=== PATIENT | male | born 1990 | race Caucasian/White ===

== ENCOUNTER 2017-09-04 14:07 | Inpatient (IN) | payer OTHER ==
[~2017-09-04] VITALS: Ht 177.8 cm; Wt 83.5 kg
--- NOTE | 2017-09-04 14:35 | PD ---
HPI Chief Complaint: Harris act Time Seen by Provider: 14:20 Travel History International Travel<30 days: No Contact w/Intl Traveler<30days: No Traveled to known affect area: No History of Present Illness HPI 26-year-old male who reports a history of schizophrenia, who presents under Harris act initiated by law enforcement. According to his paperwork, "Vin walked into the [facility] station and was saying he sees angels and demons with red eyes, seeing colors that are not there, people that are not there. Vin stated that she sees demineralized when he looks at the cell phone and he denies when he watches TV. Vin continue to talk about seeing Demon eyesand different colored eyes and was not making much sense. Vin stated that he is addicted to pills but cannot remember when the last time he used was. vin also stated that he hears voices with red eyes. Vin kept repeating that he needed Charlie." The onset of the patient's symptoms are unknown. He reports that he does not know. He does not voice any suicidal homicidal ideation. When asked about illicit drug use he says that he does not know. He does report that he has a history of schizophrenia and he has been at [facility] in the past. He reports that at one point or another he was prescribed medications and start [facility] but he does not know what they were or when he quit using them. He has no other complaints. 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 PFSH Social History Tobacco Use: Yes Allergies-Medications (Allergen,Severity, Reaction): Coded Allergies: No Known Allergies (Unverified , 09/04/17) Review of Systems ROS Limitations: Psychotic Except as stated in HPI: all other systems reviewed are Neg Physical Exam Exam Limitations: Psychotic Narrative GENERAL: This is a well-developed well-nourished male who is in no acute distress. SKIN: Warm and dry. HEAD: Atraumatic. Normocephalic. EYES: Pupils equal and round. No scleral icterus. No injection or drainage. ENT: No nasal bleeding or discharge. Mucous membranes pink and moist. NECK: Trachea midline. No JVD. CARDIOVASCULAR: Regular rate and rhythm. No murmur appreciated. RESPIRATORY: No accessory muscle use. Clear to auscultation. Breath sounds equal bilaterally. GASTROINTESTINAL: Abdomen soft, non-tender, nondistended. Hepatic and splenic margins not palpable. MUSCULOSKELETAL: No obvious deformities. No clubbing. No cyanosis. No edema. NEUROLOGICAL: Awake and alert. No obvious cranial nerve deficits. Motor grossly within normal limits. Normal speech. PSYCHIATRIC: Rapid disorganized speech, responding to internal stimuli, insight and judgment are poor. Data Data Last Documented VS Vital Signs Date Time Temp Pulse Resp B/P (MAP) Pulse Ox O2 Delivery O2 Flow Rate FiO2 09/04/17 14:53 98.4 104 18 158/97 (117) 97 Orders Orders Complete Blood Count With Diff (09/04/17 14:29) Comprehensive Metabolic Panel (09/04/17 14:29) Thyroid Stimulating Hormone (09/04/17 14:29) Psych Screen (09/04/17 14:29) Drug Screen, Random Urine (09/04/17 14:29) Alcohol (Ethanol) (09/04/17 14:29) Ct Brain W/O Iv Contrast(Rout) (09/04/17 ) Diet Regular Basic (09/04/17 Dinner) Labs Laboratory Tests Test 09/04/17 15:08 White Blood Count 7.6 TH/MM3 Red Blood Count 4.72 MIL/MM3 Hemoglobin 15.3 GM/DL Hematocrit 44.4 % Mean Corpuscular Volume 93.9 FL Mean Corpuscular Hemoglobin 32.3 PG Mean Corpuscular Hemoglobin Concent 34.4 % Red Cell Distribution Width 14.4 % Platelet Count 232 TH/MM3 Mean Platelet Volume 9.2 FL Neutrophils (%) (Auto) 72.8 % Lymphocytes (%) (Auto) 19.1 % Monocytes (%) (Auto) 6.8 % Eosinophils (%) (Auto) 0.7 % Basophils (%) (Auto) 0.6 % Neutrophils # (Auto) 5.6 TH/MM3 Lymphocytes # (Auto) 1.5 TH/MM3 Monocytes # (Auto) 0.5 TH/MM3 Eosinophils # (Auto) 0.1 TH/MM3 Basophils # (Auto) 0.0 TH/MM3 CBC Comment DIFF FINAL Differential Comment Blood Urea Nitrogen 9 MG/DL Creatinine 0.86 MG/DL Random Glucose 79 MG/DL Total Protein 7.5 GM/DL Albumin 4.0 GM/DL Calcium Level 8.6 MG/DL Alkaline Phosphatase 84 U/L Aspartate Amino Transf (AST/SGOT) 26 U/L Alanine Aminotransferase (ALT/SGPT) 33 U/L Total Bilirubin 0.7 MG/DL Sodium Level 139 MEQ/L Potassium Level 3.7 MEQ/L Chloride Level 105 MEQ/L Carbon Dioxide Level 22.7 MEQ/L Anion Gap 11 MEQ/L Estimat Glomerular Filtration Rate 106 ML/MIN Thyroid Stimulating Hormone 3rd Gen 0.365 uIU/ML Ethyl Alcohol Level LESS THAN 3 MG/DL MDM Medical Decision Making Medical Screen Exam Complete: Yes Emergency Medical Condition: Yes Medical Record Reviewed: Yes Differential Diagnosis Schizophrenia, acute psychosis, encephalitis, meningitis, substance-induced mood disorder, schizoaffective disorder Narrative Course 26-year-old male who reports a history of schizophrenia presents under Harris act for psychiatric evaluation. Mental health screening discussed with the patient. Psychiatric screen ordered. Lab work is unremarkable. CT the brain is normal. The patient is medically cleared for psychiatric disposition. Diagnosis Primary Impression: Medical clearance for psychiatric admission Wilfredo Segovia Sep 04, 2017 14:35
[2017-09-04 14:53] VITALS: BP 158/97; PULSE 104; RESP 18; TEMP 98.4; O2SAT 97
[2017-09-04 15:33] LABS: AUTOMATED NEUTROPHIL # 5.6 TH/MM3 (1.8-7.7); BASOPHIL % 0.6 % (0.0-2.0); EOSINOPHIL # 0.1 TH/MM3 (0-0.4); EOSINOPHIL % 0.7 % (0.0-4.0); HEMATOCRIT 44.4 % (39.0-51.0); HEMOGLOBIN 15.3 GM/DL (13.0-17.0); LYMPH % 19.1 % (9.0-44.0); LYMPHOCYTE # 1.5 TH/MM3 (1.0-4.8); MEAN CELL VOLUME 93.9 FL (80.0-100.0); MEAN CORPUSCULAR HEMOGLOBIN 32.3 PG (27.0-34.0); MEAN CORPUSCULAR HGB CONC 34.4 % (32.0-36.0); MEAN PLATELET VOLUME 9.2 FL (7.0-11.0); MONO % 6.8 % (0.0-8.0); MONOCYTE # 0.5 TH/MM3 (0-0.9); NEUT % 72.8 % (16.0-70.0); PLATELET COUNT 232 TH/MM3 (150-450); RED BLOOD COUNT 4.72 MIL/MM3 (4.50-5.90); RED CELL DISTRIBUTION WIDTH 14.4 % (11.6-17.2); WHITE BLOOD COUNT 7.6 TH/MM3 (4.0-11.0)
[2017-09-04 16:19] LABS: ALKALINE PHOSPHATASE 84 U/L (45-117); TOTAL BILIRUBIN ADULT 0.7 MG/DL (0.2-1.0); TOTAL PROTEIN 7.5 GM/DL (6.4-8.2)
[2017-09-04 16:22] LABS: ALT (GPT) 33 U/L (12-78); AST (GOT) 26 U/L (15-37); BICARBONATE 22.7 MEQ/L (21.0-32.0); BLOOD UREA NITROGEN 9 MG/DL (7-18); CALCIUM 8.6 MG/DL (8.5-10.1); CHLORIDE 105 MEQ/L (98-107); CREATININE 0.86 MG/DL (0.60-1.30); GLOMERULAR FILTRATION RATE 106 ML/MIN (>89); GLUCOSE,RANDOM 79 MG/DL (74-106); SODIUM (NA) 139 MEQ/L (136-145)
--- NOTE | 2017-09-04 18:05 | RADRPT ---
EXAM DATE/TIME: 09/04/2017 17:33 [facility] COMPARISON: No previous studies available for comparison. INDICATIONS : Altered mental status. RADIATION DOSE: 56.77 CTDIvol (mGy) MEDICAL HISTORY : None SURGICAL HISTORY : None. ENCOUNTER: Initial ACUITY: 1 day PAIN SCALE: 0/10 LOCATION: cranial TECHNIQUE: Multiple contiguous axial images were obtained of the head. Using automated exposure control and adj ustment of the mA and/or kV according to patient size, radiation dose was kept as low as reasonably a chievable to obtain optimal diagnostic quality images. DICOM format image data is available electro nically for review and comparison. FINDINGS: CEREBRUM: The ventricles are normal for age. No evidence of midline shift, mass lesion, hemorrhage or acute in farction. No extra-axial fluid collections are seen. POSTERIOR FOSSA: The cerebellum and brainstem are intact. The 4th ventricle is midline. The cerebellopontine angle i s unremarkable. EXTRACRANIAL: The visualized portion of the orbits is intact. SKULL: The calvaria is intact. No evidence of skull fracture. CONCLUSION: No acute disease. Fredy Estrada MD on September 04, 2017 at 18:02 Board Certified Radiologist. This report was verified electronically.
[2017-09-04 18:21] VITALS: BP 120/66; PULSE 68; RESP 18; O2SAT 98
[2017-09-05 05:36] VITALS: BP 127/72; PULSE 53; RESP 20; TEMP 98.2; O2SAT 97
[2017-09-05] MEDS ORDERED: ACETAMINOPHEN 325 MG TAB PO PRN (14:30)
[2017-09-05] MEDS ORDERED: NICOTINE 21 MG/24 HR PATCH T-DERMAL PRN (14:30)
[2017-09-05] MEDS ORDERED: ALUMINUM/MAGNESIUM/SIMETH 30 ML CUP PO PRN (14:30)
[2017-09-05] MEDS ORDERED: MAGNESIUM HYDROXIDE SUSP 30 ML CUP PO PRN (14:30)
[2017-09-05 15:00] VITALS: BP 139/81; PULSE 72; RESP 18; TEMP 98.1; O2SAT 97
[2017-09-06 06:06] VITALS: BP 122/65; PULSE 62; RESP 18; TEMP 98.7; O2SAT 95
[2017-09-06 09:07] LABS: CHOLESTEROL 112 MG/DL (120-200); TRIGLYCERIDES 105 MG/DL (42-150)
[2017-09-06 09:08] LABS: CHOLESTEROL/ HDL RATIO 2.87 RATIO; LDL CHOLESTEROL 52 MG/DL (0-99)
[2017-09-06] MEDS ORDERED: hydrOXYzine HCL 50 MG TAB PO PRN (14:00)
[2017-09-06] MEDS: OLANZapine 5 MG TAB PO SCH ×2 (14:31→21:42)
[2017-09-06 15:14] LABS: HEMOGLOBIN A1C 4.8 % (4.3-6.0)
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
[2017-09-06 18:10] VITALS: BP 129/59; PULSE 57; RESP 18; TEMP 98.4; O2SAT 96
[2017-09-06] MEDS ORDERED: diphenhydrAMINE HCL 50 MG CAP PO PRN (21:00)
[2017-09-07 06:12] VITALS: BP 129/67; PULSE 66; RESP 18; TEMP 98.9; O2SAT 95
[2017-09-07] MEDS: OLANZapine 5 MG TAB PO SCH (08:26)
--- NOTE | 2017-09-07 11:56 | HHI.PYPN ---
Subjective Remarks Patient seen for follow, chart reviewed. Discussion nursing staff reported the patient continued to endorse auditory hallucinations last night but feels medications are helping. Patient was found ambulating on unit noted B, cooperative. Patient states that he feels medications have been helping and that it has been easier for him to be able to focus which words he chooses. He states "every what is different before but medications are helping". Patient denies any adverse drug reactions. Patient continues to make occasional nonsensical statements, such as "I was listening to country music and everyone listening as well". Patient noted with less pressured speech today. Review of Systems Except as stated in HPI: all other systems reviewed are Neg Mental Status Examination Appearance: Appropriate Consciousness: Alert Orientation: Person, Place, Date/Time Speech: Pressured (Lessening) Language: Adequate Fund of Knowledge: Inadequate Attention and Concentration: Adequate Memory: Unremarkable Mood: Anxious (Less so today) Affect: Labile (Less so today) Thought Process & Associations: Disorganized, Tangential Thought Content: Hallucinations, Delusional Hallucination Type: Auditory, Visual, Other Delusion Type: Bizarre, Paranoid, Other (Religiously preoccupied) Suicidal Ideation: No Suicidal Plan: No Suicidal Intention: No Homicidal Ideation: No Homicidal Plan: No Homicidal Intention: No Insight: Poor Judgment: Poor Results Vitals/IOs Vital Signs Date Time Temp Pulse Resp B/P (MAP) Pulse Ox O2 Delivery O2 Flow Rate FiO2 09/07/17 06:12 98.9 66 18 129/67 (87) 95 09/05/17 05:36 Room Air Assessment & Plan Problem List: (1) Unspecified psychosis ICD Codes: F29 - Unspecified psychosis not due to a substance or known physiological condition Assessment & Plan Patient this time continues to have some disorganization, continues with perceptual services, noted to be slightly more organized thought process today along with less pressured speech. We will increase olanzapine to 5 mg a.m./ 10 mg at bedtime. Continue monitor mood and behavior. Discharge planning in progress. Justification for Cont. Inpt. At risk of further decompensation a lower level of care. Oc Pichardo MD Sep 07, 2017 11:56
--- NOTE | 2017-09-07 12:41 | PD.PSY.CON ---
Provisional Diagnosis Admission Date Sep 05, 2017 at 14:19 Waldo I. Unspecified psychosis History of Present Illness Service Psychiatry Consult Requested By Psychiatry Reason for Consult Second opinion Primary Care Physician Unknown HPI Patient is a 26-year-old man, single, has 1 child currently not living with him, unemployed, homeless but recently domiciled at [facility] the [facility],, with a past psychiatric history of schizophrenia versus bipolar disorder as per patient, with 3-4 previous psychiatric admissions last time being at [facility], with reported multiple suicide attempts, with substance use history of alcohol and OxyContin use in early remission who was brought to the ED under [employer] act as patient had walked into a [employer] station stating hearing and seeing angels and demons which patient was admitted to the inpatient psychiatry for further evaluation and management. Patient was noted to be somewhat labile during interview, stating that he had the Bible speaking to him and had been seeing the devil for the past couple of days. Patient states that while living in the sober living facility other members would try to ambulate his actions regarding praying or singing or listening to country music. Patient states that the Bible "started turning on me" stating that he was experiencing auditory hallucinations as well. Patient states he had been eating recently stating that he is "strong". Patient denies any SI or HI. Patient noted to be religiously preoccupied. The patient is a 26 years old man, he is single, unemployed, domiciled in a residential facility [facility], with psychiatric history of schizophrenia and bipolar disorder, previous psychiatric hospitalizations, multiple suicidal attempts, was brought to the hospital on the [employer] at with commanding type auditory hallucinations. Patient was consulted to me for second opinion. Patient reports that he is better now, he is quite disorganized, stating that he is hearing voices from the [place] talking to him. He denies suicidal and was ideation, he denies visual hallucinations. his oriented 3. Past Family Social History Coded Allergies: No Known Allergies (Unverified , 09/04/17) No Active Prescriptions or Reported Meds Current Medications Medications (Trade) Dose Ordered Sig/Ana Route Start Time Stop Time Status Last Admin (Tylenol) 650 mg Q4H PRN PO 09/05/17 14:30 (Milk Of Magnesia Liq) 30 ml DAILY PRN PO 09/05/17 14:30 (Mag-Al Plus Susp Liq) 30 ml Q6H PRN PO 09/05/17 14:30 (Habitrol 21 Mg Patch.24 Hr) 1 patch DAILY PRN T-DERMAL 09/05/17 14:30 (Benadryl) 50 mg HS PRN PO 09/06/17 21:00 (Atarax) 50 mg Q6H PRN PO 09/06/17 14:00 (ZyPREXA) 5 mg DAILY PO 09/08/17 09:00 (ZyPREXA) 10 mg HS PO 09/07/17 21:00 Miscellaneous Information 1 HS T-DERMAL 09/07/17 21:00 Patient's Strengths (min. 2) Verbal and communicative Physical Exam Vital Signs Vital Signs Date Time Temp Pulse Resp B/P (MAP) Pulse Ox O2 Delivery O2 Flow Rate FiO2 09/07/17 06:12 98.9 66 18 129/67 (87) 95 09/05/17 05:36 Room Air Mental Status Examination Appearance: Appropriate Consciousness: Alert Orientation: Person, Place, Date/Time Speech: Pressured (Lessening) Language: Adequate Fund of Knowledge: Inadequate Attention and Concentration: Adequate Memory: Unremarkable Mood: Anxious (Less so today) Affect: Labile (Less so today) Thought Process & Associations: Disorganized, Tangential Thought Content: Hallucinations, Delusional Hallucination Type: Auditory, Visual, Other Delusion Type: Bizarre, Paranoid, Other (Religiously preoccupied) Suicidal Ideation: No Suicidal Plan: No Suicidal Intention: No Homicidal Ideation: No Homicidal Plan: No Homicidal Intention: No Insight: Poor Judgment: Poor Assessment & Plan Problem List: (1) Unspecified psychosis ICD Codes: F29 - Unspecified psychosis not due to a substance or known physiological condition Assessment & Plan: I have seen and examined this patient, reviewed documentation, I agree and concur with Dr. Pichardo assessment and plan. Assessment & Plan Estimated LOS: Cal Higgins MD Sep 07, 2017 12:41
[2017-09-07 18:19] VITALS: BP 129/63; PULSE 53; RESP 17; TEMP 98.2; O2SAT 99
[2017-09-07] MEDS: REMOVE OLD NICODERM (NICOTINE) PATCH T-DERMAL SCH (21:00)
[2017-09-07] MEDS: OLANZapine 10 MG TAB PO SCH (21:59)
[2017-09-08 06:29] VITALS: BP 121/70; PULSE 59; RESP 17; TEMP 98.4; O2SAT 96
[2017-09-08] MEDS: OLANZapine 5 MG TAB PO SCH (09:18)
--- NOTE | 2017-09-08 14:10 | HHI.PYPN ---
Subjective Remarks Patient was seen and case discussed with nursing. Patient is vague and superficial during the interview. Both questions are answered as "a little bit , here and there." No longer seeing demons or red eyes. He is tolerating his medications well. Behaving well on the unit. Could be responding to internal stimuli Mental Status Examination Appearance: Appropriate Consciousness: Alert Orientation: Person, Place, Date/Time Speech: Pressured (Lessening) Language: Adequate Fund of Knowledge: Inadequate Attention and Concentration: Adequate Memory: Unremarkable Mood: Anxious (Less so today) Affect: Labile (Less so today) Thought Process & Associations: Tangential Thought Content: Hallucinations, Delusional Hallucination Type: Auditory (Nonspecific), Other Delusion Type: Bizarre, Paranoid, Other (Religiously preoccupied) Suicidal Ideation: No Suicidal Plan: No Suicidal Intention: No Homicidal Ideation: No Homicidal Plan: No Homicidal Intention: No Insight: Poor Judgment: Poor Results Vitals/IOs Vital Signs Date Time Temp Pulse Resp B/P (MAP) Pulse Ox O2 Delivery O2 Flow Rate FiO2 09/08/17 06:29 98.4 59 17 121/70 (87) 96 09/05/17 05:36 Room Air Assessment & Plan Problem List: (1) Unspecified psychosis ICD Codes: F29 - Unspecified psychosis not due to a substance or known physiological condition Assessment & Plan Continue current treatment plan Justification for Cont. Inpt. Patient would decompensate in a less restrictive setting Thad Ribeiro DO Sep 08, 2017 14:10
[2017-09-08 18:00] VITALS: BP 133/71; PULSE 63; RESP 17; TEMP 98.5; O2SAT 96
[2017-09-08] MEDS: REMOVE OLD NICODERM (NICOTINE) PATCH T-DERMAL SCH (20:20)
[2017-09-08] MEDS: OLANZapine 10 MG TAB PO SCH (20:20)
[2017-09-09 06:25] VITALS: BP 108/58; PULSE 51; RESP 18; TEMP 98.6; O2SAT 98
[2017-09-09] MEDS: OLANZapine 5 MG TAB PO SCH (09:19)
--- NOTE | 2017-09-09 14:16 | HHI.PYPN ---
Subjective Remarks Patient was seen and case discussed with nursing. Patient remains vague and superficial during the interview. He is flat and seems mildly confused. Spending most of his time in his room. Says that his daytime Zyprexa is making him sleepy. Behaving well on the unit. Today, he denies any visual hallucinations or seeing Mag[place] and his poor hearing any voices Mental Status Examination Appearance: Appropriate Consciousness: Alert Orientation: Person, Place, Date/Time Speech: Pressured (Lessening) Language: Adequate Fund of Knowledge: Inadequate Attention and Concentration: Adequate Memory: Unremarkable Mood: Appropriate Affect: Flat Thought Process & Associations: Tangential Thought Content: Depersonalization, Delusional Hallucination Type: None, Other Delusion Type: Bizarre, Paranoid, Other (Religiously preoccupied) Suicidal Ideation: No Suicidal Plan: No Suicidal Intention: No Homicidal Ideation: No Homicidal Plan: No Homicidal Intention: No Insight: Poor Judgment: Poor Results Vitals/IOs Vital Signs Date Time Temp Pulse Resp B/P (MAP) Pulse Ox O2 Delivery O2 Flow Rate FiO2 09/09/17 06:25 98.6 51 18 108/58 (75) 98 Assessment & Plan Problem List: (1) Unspecified psychosis ICD Codes: F29 - Unspecified psychosis not due to a substance or known physiological condition Assessment & Plan Continue current treatment plan Justification for Cont. Inpt. Patient would decompensate in a less restrictive setting Thad Ribeiro DO Sep 09, 2017 14:16
[2017-09-09 15:47] VITALS: BP 140/78; PULSE 73; RESP 18; TEMP 98.7; O2SAT 99
[2017-09-09] MEDS: REMOVE OLD NICODERM (NICOTINE) PATCH T-DERMAL SCH (20:27)
[2017-09-09] MEDS: OLANZapine 10 MG TAB PO SCH (20:27)
[2017-09-10 06:00] VITALS: BP 122/74; PULSE 75; RESP 18; TEMP 98.2; O2SAT 96
[2017-09-10] MEDS: OLANZapine 5 MG TAB PO SCH (09:12)
[2017-09-10 16:50] VITALS: BP 131/69; PULSE 70; RESP 18; TEMP 97.6; O2SAT 97
[2017-09-10] MEDS: REMOVE OLD NICODERM (NICOTINE) PATCH T-DERMAL SCH (20:07)
[2017-09-10] MEDS: OLANZapine 10 MG TAB PO SCH (20:07)
--- NOTE | 2017-09-10 20:36 | HHI.PYPN ---
Subjective Remarks Patient seen for follow-up, chart reviewed. Discussion with nursing staff reported the patient mostly seclusive but has a compliant with treatment. Patient was found lying hospital but continues to be have some vague report as far as his auditory hallucinations stating "maybe". Patient continues to state that he has plans to want to help others and plans on wanted to become a leather stamper or "open up or rehab" to help others. Patient continues to be somewhat disorganized although less so since admission. Patient states that he does not quite feel yet that he is "in my right mind" but states that he is able organize this thoughts easier. Review of Systems Except as stated in HPI: all other systems reviewed are Neg Mental Status Examination Appearance: Appropriate Consciousness: Alert Orientation: Person, Place, Date/Time Speech: Unremarkable Language: Adequate Fund of Knowledge: Inadequate Attention and Concentration: Adequate Memory: Unremarkable Mood: Appropriate Affect: Appropriate Thought Process & Associations: Disorganized (less so today), Tangential Thought Content: Depersonalization, Delusional Hallucination Type: None, Other Delusion Type: Bizarre, Paranoid, Other (Religiously preoccupied but lessening) Suicidal Ideation: No Suicidal Plan: No Suicidal Intention: No Homicidal Ideation: No Homicidal Plan: No Homicidal Intention: No Insight: Poor Judgment: Poor Results Vitals/IOs Vital Signs Date Time Temp Pulse Resp B/P (MAP) Pulse Ox O2 Delivery O2 Flow Rate FiO2 09/10/17 16:50 97.6 70 18 131/69 (89) 97 Assessment & Plan Problem List: (1) Unspecified psychosis ICD Codes: F29 - Unspecified psychosis not due to a substance or known physiological condition Assessment & Plan Patient at this time continues to have some disorganization with mandaen preoccupation but lessening. Will increase olanzapine to 10mg PO BID for psychosis and mood stabilization. Continue to monitor mood and behavior. Collateral pending from patient's father for possible discharge to father's home. Discharge planning in progress. Justification for Cont. Inpt. At risk for further decompensation if at lower level of care. Oc Pichardo MD Sep 10, 2017 20:36
[2017-09-11 06:31] VITALS: BP 122/59; PULSE 57; RESP 18; TEMP 98.1; O2SAT 99
[2017-09-11] MEDS: OLANZapine 10 MG TAB PO SCH ×2 (09:00→20:51)
--- NOTE | 2017-09-11 12:50 | HHI.PYPN ---
Subjective Remarks Patient seen for follow, chart reviewed. Discussion nursing staff reported the patient noted to be less labile on the unit, compliant with medications. Patient was found eating breakfast noted, cooperative. Patient states that he is tolerating medications well, feels he has able to form his thoughts easier. Patient states that he would like to be able to go back to [place] where his father and uncle R for more support, at this time denies any perceptual disturbances, denies seeing any demons or have the Bible talk to him. Patient noted to be somewhat tangential during interview although noted to be improving more engaging during questioning today; less labile. Review of Systems Except as stated in HPI: all other systems reviewed are Neg Mental Status Examination Appearance: Appropriate Consciousness: Alert Orientation: Person, Place, Date/Time Speech: Unremarkable Language: Adequate Fund of Knowledge: Inadequate Attention and Concentration: Adequate Memory: Unremarkable Mood: Appropriate Affect: Appropriate Thought Process & Associations: Disorganized (Slightly today), Tangential ( Slightly today) Thought Content: Delusional Hallucination Type: None, Other Delusion Type: Bizarre (Less so today), Other (Religiously preoccupied but lessening) Suicidal Ideation: No Suicidal Plan: No Suicidal Intention: No Homicidal Ideation: No Homicidal Plan: No Homicidal Intention: No Insight: Fair Judgment: Impulsive Results Vitals/IOs Vital Signs Date Time Temp Pulse Resp B/P (MAP) Pulse Ox O2 Delivery O2 Flow Rate FiO2 09/11/17 06:31 98.1 57 18 122/59 (80) 99 Assessment & Plan Problem List: (1) Unspecified psychosis ICD Codes: F29 - Unspecified psychosis not due to a substance or known physiological condition Assessment & Plan Patient this time noted to have improvement in thought process, although slightly labile but noted improvement. Patient continues to deny any perceptional services or visual hallucinations at this time and with plans to return back to [place] for support. Patient continues to remain stable today with no behavioral services patient likely for discharge tomorrow morning back to [place]. Continue to monitor mood and behavior. Discharge planning in progress. Justification for Cont. Inpt. At risk for further decompensation if at lower level of care Oc Pichardo MD Sep 11, 2017 12:50
[2017-09-11] MEDS ORDERED: OLAN10TA PO (12:51)
[2017-09-11 17:32] VITALS: BP 118/56; PULSE 70; RESP 18; TEMP 98.1; O2SAT 97
[2017-09-11] MEDS: REMOVE OLD NICODERM (NICOTINE) PATCH T-DERMAL SCH (21:00)
--- NOTE | 2017-09-12 12:00 | HHI.DS ---
Psychiatry Discharge Summary Inpatient Psychiatric care?: Yes Advance Directive: No Reason Not Provided: refused Mental Health AdvanceDirective: No Health Care Proxy: No Admission Admission Date Sep 05, 2017 at 14:19 Admission Diagnosis: (1) Unspecified psychosis ICD Code: F29 - Unspecified psychosis not due to a substance or known physiological condition Brief History Patient is a 26-year-old man, single, has 1 child currently not living with him, unemployed, homeless but recently domiciled at [facility],, with a past psychiatric history of schizophrenia versus bipolar disorder as per patient, with 3-4 previous psychiatric admissions last time being at [facility], with reported multiple suicide attempts, with substance use history of alcohol and OxyContin 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 Patient was noted to be somewhat labile during interview, stating that he had the Bible speaking to him and had been seeing the devil for the past couple of days. Patient states that while living in the sober living facility other members would try to ambulate his actions regarding praying or singing or listening to country music. Patient states that the Bible "started turning on me" stating that he was experiencing auditory hallucinations as well. Patient states he had been eating recently stating that he is "strong". Patient denies any SI or HI. Patient noted to be religiously preoccupied. The patient is a 26 years old man, he is single, unemployed, domiciled in [facility], with psychiatric history of schizophrenia and bipolar disorder, previous psychiatric hospitalizations, multiple suicidal attempts, was brought to the hospital on the [facility] at with commanding type auditory hallucinations. Patient was consulted to me for second opinion. Patient reports that he is better now, he is quite disorganized, stating that he is hearing voices from the [place] talking to him. He denies suicidal and was ideation, he denies visual hallucinations. his oriented 3. 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 Patient was started on olanzapine and titrated to 10mg PO BIDy, which he tolerated well with no adverse drug reactions. Patient continue with treatment and was noted to have improvement of mood, become more organized with thought process, no longer endorsing auditory or visual hallucinations nor persisted yazdanism delusions and was noted to be cooperative with staff as well as improvement in personal hygiene. Patient was noted to have improvement of insight and judgment. Patient was adherent to medication regimen and recommendations as per primary medical team. Upon discharge patient stated feeling good, stated feeling okay with returning back to [place], was calm and cooperative with staff. He agreed to continuing recommendations, treatment and attend outpatient follow up appointments for continuity of care. Patient denies SI, HI , AVH or delusions. Supportive psychotherapy provided and counseled on abstinence from substance use. Patient advised to call 911 or return back to the ED in case of any emergency. Patient agrees with plan. Results Blood Pressure 118 / 56 Vital Signs Date Time Temp Pulse Resp B/P (MAP) Pulse Ox O2 Delivery O2 Flow Rate FiO2 09/11/17 17:32 98.1 70 18 118/56 (76) 97 Laboratory Results Test 09/06/17 08:35 Cholesterol Level 112 MG/DL (120-200) HDL Cholesterol 39.0 MG/DL (40.0-60.0) Hemoglobin A1c 4.8 % (4.3-6.0) LDL Cholesterol 52 MG/DL (0-99) Triglycerides Level 105 MG/DL (42-150) Summary of Procedures none Imaging Last Impressions Head CT 09/04/17 0000 Signed Impressions: Service Date/Time: Monday, September 04, 2017 17:33 - CONCLUSION: No acute disease. Fredy Estrada MD Pending results at discharge: No Medications # of Antipsychotic meds at D/C: 1 Approp Antipsych med options 1 - Minimum of three failed multiple trials of monotherapy. 2 - Documented plan to taper to monotherapy due to previous use of multiple meds OR cross-taper in progress at D/C. 3 - Documentation of augmentation of Clozapine. 4 - Justification other than those listed in allowable values 1-3, document here : Discharge Discharge Date: Sep 12, 2017 Discharge Diagnosis: (1) Unspecified psychosis ICD Code: F29 - Unspecified psychosis not due to a substance or known physiological condition Pt Condition on Discharge: Stable Discharge Disposition: Discharge Home Discharge Instructions Diet Instructions: As Tolerated, No Restrictions Activities you can perform: Regular-No Restrictions Scheduled Appointment: Behavioral Health Appointment Date: Sep 12, 2017 Appointment Time: 9a-3p Discharge Time > 30 minutes Mental Status Examination Appearance: Appropriate Consciousness: Alert Orientation: Person, Place, Date/Time Speech: Unremarkable Language: Adequate Fund of Knowledge: Inadequate Attention and Concentration: Adequate Memory: Unremarkable Mood: Appropriate Affect: Appropriate Thought Process & Associations: Intact, Goal directed, Linear Thought Content: Appropriate Hallucination Type: None Delusion Type: None Suicidal Ideation: No Suicidal Plan: No Suicidal Intention: No Homicidal Ideation: No Homicidal Plan: No Homicidal Intention: No Insight: Fair Judgment: Impulsive Discharge/Advance Care Plan Health Problems: (1) Unspecified psychosis Goals to promote your health * To prevent worsening of your condition and complications * To maintain your health at the optimal level Directions to meet your goals Take your medications as prescribed Follow your dietary instruction Follow activity as directed Keep your appointments as scheduled Take your immunizations and boosters as scheduled If your symptoms worsen call your PCP, if no PCP go to Urgent Care Center or Emergency Room For 18/12 questions related to your inpatient stay or results of tests pending at discharge, please contact Dr. Oc Pichardo at Smoking is Dangerous to Your Health. Avoid second hand smoking Oc Pichardo MD Sep 12, 2017 12:00
== END 2017-09-12 05:00 | disposition home or self-care (01) | DRG 885 ==
LOC: NEPJ 14:07 → NEDA 09-05 14:19 → H270 09-05 15:00
PROVIDERS: ADMIT Student in an Organized Health Care Education/Training Program; ATTEND Student in an Organized Health Care Education/Training Program
DX: F29 Unspecified psychosis not due to a substance or known physiological condition (principal); F20.9 Schizophrenia, unspecified; F31.9 Bipolar disorder, unspecified; Z91.5 Personal history of self-harm; Z72.89 Other problems related to lifestyle; F17.210 Nicotine dependence, cigarettes, uncomplicated; Z88.8 Allergy status to other drugs, medicaments and biological substances; Z79.899 Other long term (current) drug therapy
CPT/HCPCS: 70450; 80053; 80061; 80307; 83036; 84443; 85025